=== PATIENT | female | born 1935 | race Two or more races ===

== ENCOUNTER 2016-10-21 22:35 | Inpatient (IN) | payer MEDICARE, OTHER ==
[~2016-10-21] VITALS: Ht 162.6 cm; Wt 88.9 kg
--- NOTE | 2016-10-21 22:37 | NUR ---
Pt BIB [facility]. IN ER BED 6. C/O ABD PAIN & URINATING BLOOD X2DAYS. 3 NITRO SL TABS GIVEN EXTERNAL RELATIONS MANAGER. Pt IS A/OX3, FARSI SPEAKING ONLY. RR EVEN & UNLABORED. IV ACCESS EXTERNAL RELATIONS MANAGER L HAND #20G.
[2016-10-21] MEDS ORDERED: ONDANSETRON HCL/PF 4 MG/2 ML VIAL IV ONE (23:30)
[2016-10-21] MEDS ORDERED: MORPHINE SULFATE INJ 2 MG/ML DISP.SYRIN IV ONE (23:30)
[2016-10-21] MEDS ORDERED: ONDANSETRON HCL/PF 4 MG/2 ML VIAL ONE (23:33)
[2016-10-21] MEDS ORDERED: MORPHINE SULFATE INJ 4 MG/ML DISP.SYRIN ONE (23:35)
[2016-10-21] MEDS ORDERED: MORPHINE SULFATE INJ 2 MG/ML DISP.SYRIN ONE (23:35)
[2016-10-21 23:48] LABS: BASOPHILS % (AUTO) 0.5 % (0.0-2.0); EOSINOPHILS # (AUTO) 0.2 /CMM (0.0-0.7); EOSINOPHILS % (AUTO) 1.9 % (0.0-6.0); HEMATOCRIT 33 % (33-45); HEMOGLOBIN 11.2 g/dL (11.5-14.8); LYMPHOCYTES # (AUTO) 1.4 /CMM (0.8-4.8); MEAN CORPUSCULAR HEMOGLOBIN 31 PG (26.0-33.0); MEAN CORPUSCULAR HGB CONC 34 g/dl (31.0-36.0); MEAN CORPUSCULAR VOLUME 91 fL (82-100); MONOCYTES # (AUTO) 0.6 /CMM (0.1-1.30); NEUTROPHILS # (AUTO) 7.2 /CMM (1.8-8.9); NEUTROPHILS % (AUTO) 76.6 % (43.0-81.0); PLATELET COUNT (AUTO) 203 /CMM (150-450); RDW COEFFICIENT OF VARIATION 13.4 (11.5-15.0); RED BLOOD CELL COUNT(AUTO) 3.63 MIL/uL (4.0-5.2); WHITE BLOOD COUNT (AUTO) 9.3 K/uL (4.3-11.0)
[2016-10-21 23:49] LABS: APPEARANCE,URINE CLEAR (CLEAR); BILIRUBIN,URINE NEGATIVE (NEGATIVE); BLOOD, URINE 1+ Ery/uL (NEGATIVE); KETONES,URINE NEGATIVE (NEGATIVE); LEUKOCYTE ESTERASE ,URINE NEGATIVE (NEGATIVE); NITRITE, URINE NEGATIVE (NEGATIVE); PH,URINE 6.5 (5.0-8.0); PROTEIN,URINE 1+ mg/dl (NEGATIVE); UGLUCOSE NEGATIVE (NEGATIVE); UROBILINOGEN,URINE 0.2 EU/dL (0.2)
[2016-10-21 23:51] LABS: COLOR,URINE STRAW (YELLOW)
[2016-10-21 23:58] LABS: BACTERIA,URINE None seen /HPF (None Seen); SQUAMOUS EPITHELIAL CELL,UR Few /HPF (None Seen); WBC,URINE 0-2 /HPF (0-3)
[2016-10-22] VITALS (8 sets, daily range): BP systolic 101–194; BP diastolic 58–93
[2016-10-22] LABS: INR 0.94 (0.87-1.13)
[2016-10-22 00:06] LABS: ALANINE AMINOTRANSFERASE 8 U/L (12-78); ALBUMIN 3.3 g/dL (3.4-5.0); ALKALINE PHOSPHATASE 70 U/L (46-116); ASPARTATE AMINOTRANSFERASE 9 U/L (15-37); BILIRUBIN,DIRECT 0.1 mg/dL (0.0-0.2); BILIRUBIN,TOTAL 0.2 mg/dL (0.2-1.0); CALCIUM, SERUM 8.2 mg/dL (8.5-10.1); CARBON DIOXIDE 29 mmol/L (21-32); CHLORIDE 100 mmol/L (98-107); CREATININE 2.7 mg/dL (0.6-1.3); GLUCOSE 266 mg/dL (74-106); LIPASE 259 U/L (73-393); POTASSIUM 3.2 mmol/L (3.5-5.1); SODIUM SERUM 137 mmol/L (136-145); TOTAL PROTEIN, SERUM 6.7 g/dL (6.4-8.2)
[2016-10-22 00:09] LABS: UREA NITROGEN, BLOOD 96 mg/dL (7-18)
[2016-10-22 00:10] LABS: TROPONIN I 0.068 ng/mL (0.00-0.056)
[2016-10-22] MEDS ORDERED: IV NS 0.9% 1,000 ML ONE ×2 (00:18→05:21)
[2016-10-22] MEDS ORDERED: IV SET PRIMARY 1 EA INFUS.SET MC ONE (00:18)
[2016-10-22] MEDS ORDERED: IV NS 0.9% 1,000 ML BAG IV ONE (00:30)
[2016-10-22] MEDS ORDERED: ASPIRIN 81 MG TAB.CHEW ONE (00:34)
[2016-10-22] MEDS ORDERED: ASPIRIN 81 MG TAB.CHEW PO ONE (01:00)
--- NOTE | 2016-10-22 01:11 | NUR ---
PT RETURNED FROM CT.
--- NOTE | 2016-10-22 01:28 | NUR ---
PT PLACED ON A BEDPAN.
--- NOTE | 2016-10-22 01:35 | NUR ---
PT TAKEN OFF BEDPAN. APPROX 400 ML YELLOW URINE OUTPUT NOTED.
--- NOTE | 2016-10-22 04:56 | NUR ---
Pt BEING ADMITTED TO [facility]. CALLED TO GIVE REPORT. RN CURRENTLY BUSY. WILL CALL BACK ER.
--- NOTE | 2016-10-22 05:05 | NUR ---
CNA INSTRUCTOR OPENING NOTES: RECEIVED PT IN BED. PT IS FARSI SPEAKING ONLY AND IS A/OX3. PT HAS IV ON L HAND #20G AND IS BEING INFUSED WITH NS 1,000ML AT 75ML/HR. PT COMPLAINING OF N/V. BED KEPT IN LOCKED, LOWEST POSITION, AND SIDE RAILS X 2 UP. WILL CONTINUE TO MONITOR PT.
[2016-10-22] MEDS ORDERED: ONDANSETRON HCL/PF 4 MG/2 ML VIAL ONE (05:15)
[2016-10-22] MEDS: ONDANSETRON HCL/PF 4 MG/2 ML VIAL IVP PRN ×2 (05:19→11:04)
[2016-10-22] MEDS ORDERED: IV SET PRIMARY PUMP SET 1 EA INFUS.SET MC ONE ×2 (05:21→10:34)
[2016-10-22] MEDS: IV NS 0.9% 1,000 ML IV PRN ×2 (05:26→16:42)
[2016-10-22] MEDS ORDERED: ZOLPIDEM TARTRATE 5 MG TABLET PO PRN (05:30)
[2016-10-22] MEDS ORDERED: Z GUARD REMEDY 2 OZ OINT TP PRN (05:30)
[2016-10-22] MEDS ORDERED: MAG HYDROX/AL HYDROX/SIMETH 30 ML UDC PO PRN (05:30)
[2016-10-22] MEDS ORDERED: ACETAMINOPHEN 325 MG TABLET PO PRN (05:30)
[2016-10-22] MEDS ORDERED: MORPHINE SULFATE INJ 2 MG/ML DISP.SYRIN IV PRN (05:30)
[2016-10-22] MEDS ORDERED: MAGNESIUM HYDROXIDE 30 ML UDC PO PRN (05:30)
--- NOTE | 2016-10-22 05:45 | NUR ---
CADD MANAGER NOTES: PAGED EPIC. WAITING FOR DR. PRICE'S PHONE CALL.
[2016-10-22] MEDS: HYDROCODONE/APAP 5/325MG 1 EACH TABLET PO PRN (06:10)
[2016-10-22] MEDS ORDERED: hydrALAZINE HCL 25 MG TABLET ONE (06:45)
--- NOTE | 2016-10-22 06:45 | NUR ---
BASEBALL GLOVE STUFFER NOTES: PAGED EPIC AGAIN IN REGARDS TO ELEVATED BLOOD PRESSURE.
--- NOTE | 2016-10-22 06:50 | NUR ---
STRAW HAT BRUSHER NOTES: SPOKE WITH DR. PRICE IN REGARDS TO ELEVATED BLOOD PRESSURE AND GOT THE ORDER FOR HYDRALAZINE 25MG PO Q6HR FOR SBP GREATER THAN 160. WILL CONTINUE TO MONITOR PT.
[2016-10-22] MEDS: hydrALAZINE HCL 25 MG TABLET PO PRN (06:51)
--- NOTE | 2016-10-22 06:51 | NUR ---
RETAIL ADVERTISING EXECUTIVE NOTES: HYDRALAZINE 25MG PO WAS GIVEN FOR BP 194/73 HR 75. WILL CONTINUE TO MONITOR. PT IS ON TELE MONITOR AND HAS SINUS ARRHYTHMIA WITH BBB WITH PVC 42-74. WILL CONTINUE TO MONITOR.
--- NOTE | 2016-10-22 07:00 | NUR ---
JOB PRESS OPERATOR NOTE: CALLED MED RECON NURSE. MATY RN SAID HE WILL BE UP.
[2016-10-22] MEDS ORDERED: MAGN400T6 PO (07:30)
[2016-10-22] MEDS ORDERED: SITA50TA PO (07:30)
[2016-10-22] MEDS ORDERED: OLME1TAB3 PO (07:30)
[2016-10-22] MEDS ORDERED: INSU3INS6 SQ (07:30)
[2016-10-22] MEDS ORDERED: HYDR100T27 PO (07:30)
[2016-10-22] MEDS ORDERED: CHOL500052 PO (07:30)
[2016-10-22] MEDS ORDERED: ASPI81TA2 PO (07:30)
[2016-10-22] MEDS ORDERED: DILT180C PO (07:30)
[2016-10-22] MEDS ORDERED: DOCU-170 PO (07:30)
[2016-10-22] MEDS ORDERED: SENN8.6T6 PO (07:30)
[2016-10-22] MEDS ORDERED: CLON0.2T PO (07:30)
[2016-10-22] MEDS ORDERED: FURO40TA5 PO (07:30)
[2016-10-22] MEDS ORDERED: ESOM40CA PO (07:30)
[2016-10-22] MEDS ORDERED: CALC30CA PO (07:30)
[2016-10-22] MEDS ORDERED: ATOR40TA PO (07:30)
[2016-10-22] MEDS ORDERED: LUBI24CA7 PO (07:30)
[2016-10-22] MEDS ORDERED: TRAM50TA2 PO (07:30)
[2016-10-22] MEDS ORDERED: CLOP75TA2 PO (07:30)
[2016-10-22] MEDS ORDERED: LORA0.5T PO (07:30)
[2016-10-22] MEDS ORDERED: CARV25TA2 PO (07:30)
[2016-10-22] MEDS ORDERED: CARV25TA PO (07:30)
[2016-10-22] MEDS ORDERED: GLIM2TAB2 PO (07:30)
[2016-10-22] MEDS ORDERED: INSU100I14 SQ (07:30)
--- NOTE | 2016-10-22 07:52 | NUR ---
TELEMETRY TECHNICIAN NOTES PATIENT IN BED ALERT AND ORIENTED, FARSI SPEAKING, COMPLAINTS OF ABDOMINAL PAIN 12/29, MORPHINE ADMINISTERED, BLOOD SUGAR CHECKED 153, NO SLIDING SCALE AT THIS TIME, WILL FOLLOW UP WITH MD, PER PATIENT "NO INSULIN", ALL NEEDS ATTENDED, CALL LIGHT WITHIN REACH, WILL CONTINUE TO MONITOR.
[2016-10-22] MEDS: PANTOPRAZOLE 40 MG TABLET.DR PO SCH (07:58)
[2016-10-22] MEDS ORDERED: Medication Not On Formulary EA (Esomeprazole Mag Trihydrate (Nexium) 40 MG) PO SCH (08:30)
[2016-10-22] MEDS: SENNOSIDES 8.6 MG TABLET PO SCH (09:00)
[2016-10-22] MEDS: LINAGLIPTIN 5 MG TABLET PO SCH (09:00)
[2016-10-22] MEDS ORDERED: FUROSEMIDE 40 MG TABLET PO SCH (09:00)
[2016-10-22] MEDS ORDERED: CALCIFEDIOL 30 MCG PO SCH (09:00)
[2016-10-22] MEDS: MAGNESIUM OXIDE 400 MG TABLET PO SCH (09:00)
[2016-10-22] MEDS: DOCUSATE SODIUM 100 MG CAPSULE PO SCH (09:00)
[2016-10-22] MEDS ORDERED: ASPIRIN 81 MG TAB.CHEW PO SCH (09:00)
[2016-10-22] MEDS ORDERED: DEXTROSE 50%-WATER 50 ML DISP.SYRIN IV PRN (09:30)
[2016-10-22] MEDS: GLIMEPIRIDE 1 MG TABLET PO SCH ×2 (09:54→16:14)
[2016-10-22] MEDS: ASPIRIN 81 MG TAB.CHEW PO SCH (09:55)
[2016-10-22] MEDS: CLOPIDOGREL BISULFATE 75 MG TABLET PO SCH (09:56)
[2016-10-22] MEDS: DILTIAZEM HCL CD 180 MG PO SCH (10:00)
[2016-10-22] MEDS: CARVEDILOL 12.5 MG TABLET PO SCH ×2 (10:01→16:14)
[2016-10-22] MEDS: hydrALAZINE HCL 50 MG TABLET PO SCH ×2 (10:01→16:14)
[2016-10-22] MEDS: CLONIDINE HCL 0.1 MG TABLET PO SCH ×3 (10:01→16:14)
[2016-10-22] MEDS: POTASSIUM CL. PREMIX PERIPHER. 50 ML IV SCH ×4 (10:41→15:30)
--- NOTE | 2016-10-22 11:00 | NUR ---
SHELL REPRINT OPERATOR NOTES PATIENT SEEN AND EXAMINED BY DR. ANAYA, RECEIVED NEW ORDERS, PER MD CONTINUE INSULIN MEDICATIONS FROM HOME, ORDER NOTED AND CARRIED OUT. MD AWARE OF PATIENT'S ELEVATED BLOOD PRESSURE AND HEART RHYTHM OF SINUS ARRYHTMIA WITH BBB WITH PVC, PER MD CONTINUE TO MONITOR, PATIENT WILL BE SEEN BY DR. MARTINEZ.
[2016-10-22] MEDS: BLOOD SUGAR DIAGNOSTIC 1 EACH STRIP IN SCH ×3 (11:59→22:52)
--- NOTE | 2016-10-22 12:06 | NUR ---
STRIP MACHINE TENDER NOTES PATIENT SEEN BY DR. MARTINEZ, NO NEW ORDER AT THIS TIME, PATIENT HAS EMESIS X3, PER MD CONTINUE TO MONITOR.
[2016-10-22] MEDS: INSULIN LISPRO/ASPART 100 UNIT/ML CARTRIDGE SQ SCH ×2 (12:25→16:41)
[2016-10-22] MEDS: TRAMADOL HCL 50 MG TABLET PO SCH ×2 (13:29→21:18)
--- NOTE | 2016-10-22 14:13 | NUR ---
DIRECTOR PLANS NOTES PATIENT'S TROPONIN RESULT 0.[address] MARTINEZ, NO NEW ORDER AT THIS TIME.
[2016-10-22] MEDS: OLMESARTAN PO SCH (16:07)
[2016-10-22] MEDS: HYDROCHLOROTHIAZIDE PO SCH (16:07)
--- NOTE | 2016-10-22 17:35 | NUR ---
RN MS NOTES BLOOD SUGAR CHECKED 204, PATIENT HAS NO APPETITE AT THIS TIME, WILL HOLD INSULIN AT THIS TIME PATIENT IS REFUSING DINNER, ALL NEEDS ATTENDED, CALL LIGHT WITHIN REACH, WILL CONTINUE TO MONITOR.
--- NOTE | 2016-10-22 18:02 | NUR ---
SENIOR ENGINEERING TECH NOTES PATIENT IN BED, ASLEEP BUT EASILY AROUSABLE, NO COMPLAINT OF PAIN OR DISCOMFORT AT THIS TIME, NO SOB NOTED, ALL DUE MEDICATIONS GIVEN, NO S/SX OF HYPO/HYPERGLYCEMIA DINNER TRAY AT BEDSIDE, TELE MONITOR SHOWS SINUS ARRHYTHMIA WITH BBB WITH PVC, PIV ON LEFT HAND PATENT AND INTACT, WITH IVF INFUSING AND TOLERATING WELL, ALL NEEDS ATTENDED, CALL LIGHT WITHIN REACH, WILL ENDORSE TO JEWELRY APPRAISER FOR KATERINA.
--- NOTE | 2016-10-22 19:40 | NUR ---
TELE/RN NOTES PT RECEIVED RESTING IN BED. EASILY AROUSABLE. ON ROOM AIR, BREATHING EVEN AND UNLABORED. NO S/S OF DISTRESS NOTED. ON TELE MONITOR DISPLAYING SINUS ARRYTHMIA WITH BBB, HR=61. IV TO LEFT HAND RUNNING IVF ORDERED. NO S/S OF INFILTRATION NOTED. DENIES N/V AND HAS NO APPETITE AT THIS TIME. BED IN LOW/LOCKED POSITION WITH CALL LIGHT IN REACH. SIDE RAILS UPX2. WILL CONTINUE TO MONITOR
[2016-10-22] MEDS ORDERED: ATORVASTATIN 40 MG TABLET PO SCH (22:00)
[2016-10-22] MEDS: ATORVASTATIN 40 MG TABLET PO SCH (22:51)
[2016-10-22] MEDS: LORAZEPAM 0.5 MG TABLET PO SCH (22:52)
[2016-10-22] MEDS: INSULIN DETEMIR 100 UNIT/ML CARTRIDGE SQ SCH (23:07)
--- NOTE | 2016-10-22 23:11 | NUR ---
TELE/RN NOTES BLOOD SHNSQ=813, ADMINISTERED SCHEDULED LEVEMIR. PT DENIES N/V AND HAS BEEN GRADUALLY EATING SNACKS SINCE START OF SHIFT. STATES SHE IS FEELING BETTER. ENCOURAGED PO INTAKE TOLERATED AND WILL MONITOR FOR S/S OF HYPOGLYCEMIA
[2016-10-23] VITALS (8 sets, daily range): BP systolic 105–177; BP diastolic 50–69
[2016-10-23] MEDS: TRAMADOL HCL 50 MG TABLET PO SCH ×3 (05:00→20:10)
[2016-10-23] MEDS: IV NS 0.9% 1,000 ML IV PRN ×2 (06:47→22:45)
[2016-10-23] MEDS: BLOOD SUGAR DIAGNOSTIC 1 EACH STRIP IN SCH ×4 (06:47→21:10)
--- NOTE | 2016-10-23 06:53 | NUR ---
TELE/RN NOTES DT=758, NO SLIDING SCALE ORDERED. SCHEDULED GLIMEPIRIDE, TRADJENTA AND INSULIN AT 0900
[2016-10-23 07:17] LABS: CARBON DIOXIDE 29 mmol/L (21-32); CHLORIDE 104 mmol/L (98-107); CREATININE 2.7 mg/dL (0.6-1.3); GLUCOSE 170 mg/dL (74-106); MAGNESIUM 1.5 mg/dL (1.8-2.4); PHOSPHORUS 3.9 mg/dL (2.5-4.9); POTASSIUM 3.5 mmol/L (3.5-5.1); SODIUM SERUM 142 mmol/L (136-145); UREA NITROGEN, BLOOD 78 mg/dL (7-18)
--- NOTE | 2016-10-23 07:20 | NUR ---
TELE/RN NOTES PT ASLEEP, AROUSABLE. ON ROOM AIR, BREATHING REMAINS EVEN AND UNLABORED. NO S/S OF DISTRESS. DENIES PAIN. IV TO LEFT HAND PATENT AND INTACT RUNNING IVF ORDERED. NO S/S OF INFILTRATION. ASSISTED PT TO BSC PRN. ALL NEEDS MET AND ATTENDED. PT DENIES N/V, TOLERATED PO INTAKE WELL LAST NIGHT. MADE PT COMFORTABLE THROUGHOUT SHIFT. BED IN LOW/LOCKED POSITION WITH CALL LIGHT IN REACH. BED RAILS UPX2. ENDORSED TO AM SHIFT KATERINA Addendum: 10/23/16 at 0723 by TEAGAN MADRID RN ON TELE MONITOR DISPLAYING SINUS ARRYTHMIA WITH BBB, HR 64
[2016-10-23 07:21] LABS: BASOPHILS % (AUTO) 0.4 % (0.0-2.0); EOSINOPHILS # (AUTO) 0.2 /CMM (0.0-0.7); EOSINOPHILS % (AUTO) 2.3 % (0.0-6.0); HEMATOCRIT 31 % (33-45); HEMOGLOBIN 10.3 g/dL (11.5-14.8); LYMPHOCYTES # (AUTO) 1.9 /CMM (0.8-4.8); LYMPHOCYTES % (AUTO) 21.2 % (20.0-44.0); MEAN CORPUSCULAR HEMOGLOBIN 30 PG (26.0-33.0); MEAN CORPUSCULAR HGB CONC 33 g/dl (31.0-36.0); MEAN CORPUSCULAR VOLUME 92 fL (82-100); MONOCYTES # (AUTO) 0.6 /CMM (0.1-1.30); MONOCYTES % (AUTO) 7.1 % (2.0-12.0); NEUTROPHILS # (AUTO) 6.1 /CMM (1.8-8.9); PLATELET COUNT (AUTO) 167 /CMM (150-450); RDW COEFFICIENT OF VARIATION 13.9 (11.5-15.0); WHITE BLOOD COUNT (AUTO) 8.8 K/uL (4.3-11.0)
--- NOTE | 2016-10-23 07:46 | NUR ---
DIRECTOR OF PUBLICATIONS NOTES RECEIVED REPORT WITH PATIENT A/OX4. PATIENT IS RESTING COMFORTABLY IN BED. NO S/S OF DISTRESS OR SOB NOTED. IV IS PATENT AND INTACT. PATIENT ON TELE MONITOR: SR 63 WITH BUNDLE BRANCH BLOCKS. CALL LIGHT IS WITHIN REACH. BED IS IN THE LOWEST, LOCKED POSITION. WILL CONTINUE TO MONITOR THROUGHOUT SHIFT.
[2016-10-23] MEDS: INSULIN LISPRO/ASPART 100 UNIT/ML CARTRIDGE SQ SCH ×3 (08:53→17:00)
[2016-10-23] MEDS: LINAGLIPTIN 5 MG TABLET PO SCH (08:54)
[2016-10-23] MEDS: GLIMEPIRIDE 1 MG TABLET PO SCH ×2 (08:58→17:14)
[2016-10-23] MEDS: hydrALAZINE HCL 50 MG TABLET PO SCH ×2 (08:58→16:45)
[2016-10-23] MEDS: CLOPIDOGREL BISULFATE 75 MG TABLET PO SCH (08:59)
[2016-10-23] MEDS: CARVEDILOL 12.5 MG TABLET PO SCH ×2 (08:59→16:48)
[2016-10-23] MEDS ORDERED: ERGOCALCIFEROL (VITAMIN D 2) 50,000 UNIT CAPSULE PO SCH (09:00)
[2016-10-23] MEDS: CLONIDINE HCL 0.1 MG TABLET PO SCH ×3 (09:00→16:47)
[2016-10-23] MEDS: DILTIAZEM HCL CD 180 MG PO SCH ×2 (09:00→09:14)
[2016-10-23] MEDS: PANTOPRAZOLE 40 MG TABLET.DR PO SCH (09:00)
[2016-10-23] MEDS: DOCUSATE SODIUM 100 MG CAPSULE PO SCH (09:00)
[2016-10-23] MEDS: SENNOSIDES 8.6 MG TABLET PO SCH (09:00)
[2016-10-23] MEDS: MAGNESIUM OXIDE 400 MG TABLET PO SCH (09:00)
[2016-10-23] MEDS: ASPIRIN 81 MG TAB.CHEW PO SCH (09:00)
[2016-10-23] MEDS: HYDROCHLOROTHIAZIDE PO SCH (09:05)
[2016-10-23] MEDS: OLMESARTAN PO SCH (09:05)
--- NOTE | 2016-10-23 09:45 | NUR ---
HIGH DENSITY TALC COATER OPERATOR NOTES PATIENT REFUSING ORAL HYPOGLYCEMICS AND INSULIN. WILL CONTINUE TO MONITOR.
[2016-10-23] MEDS: Magnesium 1GM/D5W 100ML PREMIX 100 ML IV SCH ×2 (09:58→11:36)
[2016-10-23] MEDS ORDERED: POTASSIUM CHLORIDE 20 MEQ POWDER PACKET PO ONE (10:00)
[2016-10-23] MEDS: BOOST GLUCOSE CONTROL VANILLA 237 ML BOX PO SCH ×2 (12:31→17:00)
--- NOTE | 2016-10-23 17:34 | NUR ---
MASTICATOR NOTES PATIENT REFUSING TO TAKE MOST MEDICATIONS. PATIENT STATES HER BLOOD PRESSURE IS TOO LOW FOR MEDICATIONS. ALSO, PATIENT STATES THAT SHE DOESN'T WANT OR NEED INSULIN SINCE HER BLOOD GLUCOSE IS AT 151. EDUCATED PATIENT ON COMPLYING WITH MEDICATIONS. PATIENT IN STABLE CONDITION. NO DISTRESS NOTED. WILL CONTINUE TO MONITOR.
--- NOTE | 2016-10-23 18:29 | NUR ---
TOOLING INSPECTOR NOTES PATIENT IS A/OX4. FAMILY MEMBER AT BEDSIDE. NO S/S OF DISTRESS NOTED. NO S/S OF SOB NOTED. IV IS PATENT AND INTACT. ALL PATIENT NEEDS HAVE BEEN MET THROUGHOUT THE DAY. BED IS IN THE LOWEST, LOCKED POSITION. CALL LIGHT IS WITHIN REACH. WILL ENDORSE CARE TO PM SHIFT.
[2016-10-23] MEDS: hydrALAZINE HCL 25 MG TABLET PO PRN (20:10)
--- NOTE | 2016-10-23 20:10 | NUR ---
RN NOTES HYDRALAZINE 25 MG PO GIVEN FOR BP 177/69 PER PT. REQUEST
[2016-10-23] MEDS: ATORVASTATIN 40 MG TABLET PO SCH (21:18)
[2016-10-23] MEDS: INSULIN DETEMIR 100 UNIT/ML CARTRIDGE SQ SCH (21:18)
[2016-10-23] MEDS: LORAZEPAM 0.5 MG TABLET PO SCH (21:18)
--- NOTE | 2016-10-23 22:00 | NUR ---
RN NOTES BLOOD SUGAR-219, PT ONLY WANTS 15 UNITS INSTEAD OF 35 UNITS, PT SON KARLEE TALKED TO THE PT BUT STILL REFUSING TO RECEIVE 35 UNITS.. SNACK GIVEN
--- NOTE | 2016-10-23 22:35 | NUR ---
RN NOTES NEW IV LINE INSERTED ON THE RIGHT HAND BY ANOTHER RN
--- NOTE | 2016-10-23 22:50 | NUR ---
RN NOTES COMPLAINED OF HEADACHE- TYLENOL 650MG PO GIVEN ORDERED, V/S STABLE
[2016-10-24 00:05] VITALS: BP 156/76
--- NOTE | 2016-10-24 00:55 | NUR ---
RN NOTES RECEIVED PT AWAKE ON BED, A/OX4, [place] SPEAKING, PT WAS LITTLE BIT UPSET BECAUSE HER BLOOD PRESSURE WAS A LITTLE BIT HIGH, [facility] THAT PT WAS REFUSING HER BP MEDICATION THIS MORNING, ASKED SOMEBODY WHO SPEAK SOU[place]ORE[place] AND EXPLAINED TO HER REGARDING HER BLOOD PRESSURE MEDICATION. EXPLAINED TO THE PT THAT I'M GOING TO GIVE HER PRN BP MEDICATION AND SHE AGREED, CALL LIGHT WITHIN REACH, SIDERAILS UPX2 CONTINUE TO MONITOR Addendum: 10/24/16 at 99 by MILY PABLO RN RIGHT TIME 1929 Addendum: 10/24/16 at 101 by MILY PABLO RN RIGHT TIME AND DATE 10/23/[id number]
[2016-10-24 04:00] VITALS: BP 157/83
[2016-10-24 04:24] VITALS: BP 157/93
[2016-10-24] MEDS: TRAMADOL HCL 50 MG TABLET PO SCH ×4 (05:09→21:25)
--- NOTE | 2016-10-24 06:38 | NUR ---
RN NOTES AWAKE, DENIES PAIN, NO SOB, MORNING CARE RENDERED, PT NEEDS ATTENDED. ENDORSED TO DAYSHIFT NURSE FOR CONTINUITY OF CARE
[2016-10-24 06:44] LABS: BASOPHILS % (AUTO) 0.3 % (0.0-2.0); EOSINOPHILS # (AUTO) 0.3 /CMM (0.0-0.7); EOSINOPHILS % (AUTO) 3.1 % (0.0-6.0); HEMATOCRIT 33 % (33-45); LYMPHOCYTES # (AUTO) 1.4 /CMM (0.8-4.8); LYMPHOCYTES % (AUTO) 14.9 % (20.0-44.0); MEAN CORPUSCULAR HEMOGLOBIN 31 PG (26.0-33.0); MEAN CORPUSCULAR HGB CONC 33 g/dl (31.0-36.0); MEAN CORPUSCULAR VOLUME 92 fL (82-100); MONOCYTES # (AUTO) 0.8 /CMM (0.1-1.30); MONOCYTES % (AUTO) 9.2 % (2.0-12.0); NEUTROPHILS # (AUTO) 6.6 /CMM (1.8-8.9); NEUTROPHILS % (AUTO) 72.5 % (43.0-81.0); PLATELET COUNT (AUTO) 178 /CMM (150-450); RDW COEFFICIENT OF VARIATION 13.3 (11.5-15.0); RED BLOOD CELL COUNT(AUTO) 3.59 MIL/uL (4.0-5.2); WHITE BLOOD COUNT (AUTO) 9.1 K/uL (4.3-11.0)
[2016-10-24 07:07] VITALS: BP 166/84
[2016-10-24 07:12] LABS: CALCIUM, SERUM 8.2 mg/dL (8.5-10.1); CARBON DIOXIDE 27 mmol/L (21-32); CHLORIDE 103 mmol/L (98-107); CREATININE 2.6 mg/dL (0.6-1.3); GLUCOSE 101 mg/dL (74-106); MAGNESIUM 2.3 mg/dL (1.8-2.4); POTASSIUM 3.9 mmol/L (3.5-5.1); SODIUM SERUM 140 mmol/L (136-145); UREA NITROGEN, BLOOD 74 mg/dL (7-18)
[2016-10-24] MEDS: BLOOD SUGAR DIAGNOSTIC 1 EACH STRIP IN SCH ×4 (07:30→21:25)
--- NOTE | 2016-10-24 07:48 | NUR ---
TELE/RN OPENING NOTES PT. IS IN BED AWAKE, A&OX3. NO SOB, BREATHING ON ROOM AIR UNLABORED. NO S/S OF ACUTE DISTRESS. PT .IS ON TELE MONITOR SINUS BRADYCARDIA WITH BUNDLE BRANCH BLOCK AT 52 BPM. PT. HAS RIGHT HAND IV ACCESS. BED IN LOW POSITION, 2 SIDE RAILS UP, AND INSTRUCTED PT. TO USE CALL LIGHT FOR ASSISTANCE.
[2016-10-24] MEDS: PANTOPRAZOLE 40 MG TABLET.DR PO SCH (08:42)
[2016-10-24] MEDS: BOOST GLUCOSE CONTROL VANILLA 237 ML BOX PO SCH ×3 (08:42→17:00)
[2016-10-24] MEDS: ASPIRIN 81 MG TAB.CHEW PO SCH (08:43)
[2016-10-24] MEDS: MAGNESIUM OXIDE 400 MG TABLET PO SCH (08:43)
[2016-10-24] MEDS: SENNOSIDES 8.6 MG TABLET PO SCH (08:43)
[2016-10-24] MEDS: DOCUSATE SODIUM 100 MG CAPSULE PO SCH (08:43)
[2016-10-24] MEDS: HYDROCODONE/APAP 5/325MG 1 EACH TABLET PO PRN (08:44)
[2016-10-24] MEDS: hydrALAZINE HCL 50 MG TABLET PO SCH ×2 (08:47→18:19)
[2016-10-24] MEDS: CLOPIDOGREL BISULFATE 75 MG TABLET PO SCH (08:49)
[2016-10-24] MEDS: CARVEDILOL 12.5 MG TABLET PO SCH ×2 (08:49→18:19)
[2016-10-24] MEDS: CLONIDINE HCL 0.1 MG TABLET PO SCH ×3 (08:56→18:18)
[2016-10-24] MEDS: OLMESARTAN PO SCH ×2 (09:00→09:51)
[2016-10-24] MEDS: LINAGLIPTIN 5 MG TABLET PO SCH (09:00)
[2016-10-24] MEDS: GLIMEPIRIDE 1 MG TABLET PO SCH ×2 (09:00→18:20)
[2016-10-24] MEDS: INSULIN LISPRO/ASPART 100 UNIT/ML CARTRIDGE SQ SCH ×3 (09:00→17:00)
[2016-10-24] MEDS: HYDROCHLOROTHIAZIDE PO SCH ×2 (09:00→09:51)
[2016-10-24] MEDS ORDERED: MINERAL OIL 133 ML (PYXIS) 1 EA ENEMA RC PRN (13:00)
[2016-10-24] MEDS ORDERED: MINERAL OIL 133 ML (PYXIS) 1 EA ENEMA RC SCH (13:00)
[2016-10-24] MEDS ORDERED: LACTULOSE 10 G/15 ML UDC (PYXIS) PO ONE (13:00)
[2016-10-24] MEDS ORDERED: IV SET PRIMARY PUMP SET 1 EA INFUS.SET MC ONE (13:06)
[2016-10-24] MEDS ORDERED: ONDANSETRON 4 MG TAB.RAPDIS SL PRN (13:30)
[2016-10-24 16:00] VITALS: BP 157/62
--- NOTE | 2016-10-24 19:45 | NUR ---
RN NOTES RECEIVED PT. SLEEPING BUT AROUSABLE, IV FLUID IS OFF PER PT REQUEST, DENIES PAIN, NO SOB, CALL LIGHT WITHIN REACH, SIDERAILS UPX2 CONTINUE TO MONITOR
--- NOTE | 2016-10-24 19:53 | NUR ---
TELE/RN CLOSING NOTES PT. IS IN BED SLEEPING, A&OX3. NO SOB, BREATHING ON ROOM AIR UNLABORED. NO S/S OF ACUTE DISTRESS. NEW IV ACCESS ON RIGHT ANTECUBITAL SITE. BED IN LOW POSITION, 2 SIDE RAILS UP, AND INSTRUCTED PT. TO USE CALL LIGHT FOR ASSISTANCE.
[2016-10-24 20:00] VITALS: BP 140/62
--- NOTE | 2016-10-24 21:15 | NUR ---
RN NOTES DR. FERMIN JIMENEZ CAME AND GOT AN ORDER TO STOPPED THE IV FLUID , ORDER NOTED AND CARRIED OUT
[2016-10-24] MEDS: ATORVASTATIN 40 MG TABLET PO SCH (21:24)
[2016-10-24] MEDS: INSULIN DETEMIR 100 UNIT/ML CARTRIDGE SQ SCH (21:30)
[2016-10-24] MEDS: LORAZEPAM 0.5 MG TABLET PO SCH (21:42)
--- NOTE | 2016-10-24 21:45 | NUR ---
RN NOTES PT BLOOD SUGAR IS 330 BUT PT ONLY WANTS TO RECEIVED 20UNITS OF LEVEMIR . PT REFUSED 35 UNITS OF LEVEMIR. SNACK GIVEN
[2016-10-25] MEDS: TRAMADOL HCL 50 MG TABLET PO SCH (05:59)
--- NOTE | 2016-10-25 06:21 | NUR ---
RN NOTES AWAKE, MORNING CARE RENDERED, CALL LIGHT WITHIN REACH, SIDERAILS UPX2, PT NEEDS ATTENDED. ENDORSED TO DAYSHIFT NURSE FOR CONTINUITY OF CARE
[2016-10-25 06:22] LABS: BASOPHILS % (AUTO) 0.3 % (0.0-2.0); EOSINOPHILS # (AUTO) 0.2 /CMM (0.0-0.7); EOSINOPHILS % (AUTO) 2.4 % (0.0-6.0); HEMATOCRIT 31 % (33-45); HEMOGLOBIN 10.5 g/dL (11.5-14.8); LYMPHOCYTES # (AUTO) 1.2 /CMM (0.8-4.8); LYMPHOCYTES % (AUTO) 14.8 % (20.0-44.0); MEAN CORPUSCULAR HEMOGLOBIN 31 PG (26.0-33.0); MEAN CORPUSCULAR HGB CONC 33 g/dl (31.0-36.0); MEAN CORPUSCULAR VOLUME 92 fL (82-100); MONOCYTES # (AUTO) 0.7 /CMM (0.1-1.30); MONOCYTES % (AUTO) 9.2 % (2.0-12.0); NEUTROPHILS # (AUTO) 5.9 /CMM (1.8-8.9); NEUTROPHILS % (AUTO) 73.3 % (43.0-81.0); PLATELET COUNT (AUTO) 168 /CMM (150-450); RDW COEFFICIENT OF VARIATION 13.5 (11.5-15.0); WHITE BLOOD COUNT (AUTO) 8.1 K/uL (4.3-11.0)
[2016-10-25 06:39] LABS: CALCIUM, SERUM 8.4 mg/dL (8.5-10.1); CARBON DIOXIDE 28 mmol/L (21-32); CHLORIDE 104 mmol/L (98-107); CREATININE 2.4 mg/dL (0.6-1.3); GLUCOSE 176 mg/dL (74-106); POTASSIUM 3.8 mmol/L (3.5-5.1); SODIUM SERUM 140 mmol/L (136-145); UREA NITROGEN, BLOOD 65 mg/dL (7-18)
[2016-10-25 08:00] VITALS: BP 116/62
[2016-10-25] MEDS: INSULIN LISPRO/ASPART 100 UNIT/ML CARTRIDGE SQ SCH (09:00)
[2016-10-25] MEDS ORDERED: FUROSEMIDE 40 MG TABLET PO SCH (09:00)
[2016-10-25] MEDS: MAGNESIUM OXIDE 400 MG TABLET PO SCH ×2 (09:00→09:08)
[2016-10-25] MEDS: DILTIAZEM HCL CD 180 MG PO SCH ×2 (09:00→09:05)
[2016-10-25] MEDS: BOOST GLUCOSE CONTROL VANILLA 237 ML BOX PO SCH (09:02)
[2016-10-25] MEDS: PANTOPRAZOLE 40 MG TABLET.DR PO SCH (09:02)
[2016-10-25] MEDS: GLIMEPIRIDE 1 MG TABLET PO SCH (09:03)
[2016-10-25] MEDS: hydrALAZINE HCL 50 MG TABLET PO SCH (09:04)
[2016-10-25] MEDS: ASPIRIN 81 MG TAB.CHEW PO SCH (09:04)
[2016-10-25] MEDS: CLONIDINE HCL 0.1 MG TABLET PO SCH (09:05)
[2016-10-25 09:06] VITALS: BP 120/65
[2016-10-25] MEDS: DOCUSATE SODIUM 100 MG CAPSULE PO SCH (09:06)
[2016-10-25] MEDS: CARVEDILOL 12.5 MG TABLET PO SCH (09:06)
[2016-10-25] MEDS: HYDROCHLOROTHIAZIDE PO SCH (09:07)
[2016-10-25] MEDS: OLMESARTAN PO SCH (09:07)
[2016-10-25] MEDS: CLOPIDOGREL BISULFATE 75 MG TABLET PO SCH (09:08)
[2016-10-25] MEDS: SENNOSIDES 8.6 MG TABLET PO SCH (09:08)
[2016-10-25] MEDS: LINAGLIPTIN 5 MG TABLET PO SCH (09:09)
[2016-10-25] MEDS: BLOOD SUGAR DIAGNOSTIC 1 EACH STRIP IN SCH (09:17)
--- NOTE | 2016-10-25 09:30 | NUR ---
PATIENT NOTED IN A STABLE CONDITION .BLOOD SUGAR AT 05:56 WAS 161.BY GLUCOMETER .PATIENT REFUSED GLUCOMETER CHECK WELL INSULIN
--- NOTE | 2016-10-25 16:31 | NUR ---
Patient noted stable .refused afternoon ,meds as well as blood sugar check.family member accompanied patient downstairs with nadir estrada.patient is discharged .
== END 2016-10-25 12:45 | disposition home or self-care (01) | DRG 280 ==
LOC: ER 22:37 → TELE 10-22 02:41 → MED 10-24 11:32
PROVIDERS: ADMIT Internal Medicine; ATTEND Internal Medicine
DX: I21.4 Non-ST elevation (NSTEMI) myocardial infarction (principal); N17.0 Acute kidney failure with tubular necrosis; E44.1 Mild protein-calorie malnutrition; K92.1 Melena; I12.9 Hypertensive chronic kidney disease with stage 1 through stage 4 chronic kidney disease, or unspecified chronic kidney disease; F41.9 Anxiety disorder, unspecified; E87.6 Hypokalemia; E78.5 Hyperlipidemia, unspecified; E55.9 Vitamin D deficiency, unspecified; E11.22 Type 2 diabetes mellitus with diabetic chronic kidney disease; I25.10 Atherosclerotic heart disease of native coronary artery without angina pectoris; K21.9 Gastro-esophageal reflux disease without esophagitis; N18.9 Chronic kidney disease, unspecified; E83.42 Hypomagnesemia; E88.09 Other disorders of plasma-protein metabolism, not elsewhere classified; Z98.61 Coronary angioplasty status; R10.9 Unspecified abdominal pain; K59.00 Constipation, unspecified; R93.5 Abnormal findings on diagnostic imaging of other abdominal regions, including retroperitoneum
CPT/HCPCS: 36415; 71010-TC; 72128-TC; 80048-TC; 80076-TC; 81000-TC; 82272-TC; 82962-TC; 83690-TC; 83735-TC; 84100-TC; 84484-TC; 85025-TC; 85730-TC; 87081-TC; 93307-TC; 97001-TC; A4606; J1815; J2270; J2405; J3475; J3480; J7030; Q0162; Z7610